=== PATIENT | male | born 1960 | race Caucasian/White ===

== ENCOUNTER 2017-09-10 14:44 | Emergency (ER) | payer OTHER ==
[~2017-09-10] VITALS: Ht 175.3 cm; Wt 83.1 kg
[2017-09-10 14:51] VITALS: Ht 175.3 cm; Wt 83.1 kg
[2017-09-10] MEDS ORDERED: CLONAZEPAM 1 MG TAB PO ONE (17:15)
[2017-09-10] MEDS ORDERED: CLONAZEPAM 0.5 MG TAB PO SCH (17:30)
--- NOTE | 2017-09-10 17:32 | EMERGENCY ROOM VISIT NOTE ---
History Report prepared by Markos: Vamshi Vela Under the Supervision of: Dr. Chandler Mercer D.O. First contact with patient: 16:54 Chief Complaint: MEDICATION REFILL REQUEST Stated Complaint: CONFUSION AND LEG TREMORS,NEEDS MEDS History of Present Illness The patient is a 57 year old male who presents to the Emergency Room with complaints of an episode of a medication refill request occurring today. Per sister, the patient takes Klonopin, Seroquel, and atenolol. She notes that the patient has been traveling around the country recently, and arrived here a month ago. She reports that the patient does not currently have any of his medication, prompting their visit to the emergency room today. The patient complains of pain in his head and neck, numbness in his hand, and hand tremors. He states that it feels like "someone stuck him with a knife." He notes that he has a history of anxiety. Source of History: patient, family (sister) Onset: today Position: other (global) Quality: other (medication refill) Timing: other (an episode) Associated Symptoms: + headache Note: The patient also complains of neck pain, numbness in his hands, and hand tremors. Review of Systems See HPI for pertinent positives & negatives. A total of 10 systems reviewed and were otherwise negative. Past Medical & Surgical Medical Problems: (1) Anxiety Family History No pertinent family history stated. Social History Smoking Status: Never Smoker Marital Status: single Housing Status: lives with family Occupation Status: unemployed Physical Exam Vital Signs Date Time Temp Pulse Resp B/P (MAP) Pulse Ox O2 Delivery O2 Flow Rate FiO2 09/10/17 14:51 36.4 95 17 122/79 97 Room Air Physical Exam CONSTITUTIONAL/VITAL SIGNS: Reviewed / noted above. GENERAL: Non-toxic in appearance. INTEGUMENTARY: Warm, dry, and [place]. HEAD: Normocephalic. EYES: without scleral icterus or trauma. ENT/OROPHARYNX: clear and moist. LYMPHADENOPATHY/NECK: Is supple without lymphadenopathy or meningismus. RESPIRATORY: Lungs clear and equal. CARDIOVASCULAR: Regular rate and rhythm. GI/ABDOMEN: Soft and nontender. No organomegaly or pulsatile mass. No rebound or guarding. Normal bowel sounds. EXTREMITIES: Warm and well perfused. BACK: No CVA tenderness. NEUROLOGICAL: Intact without focal deficits. PSYCHIATRIC: normal affect. MUSCULOSKELETAL: Normally developed with good muscle tone. Medical Decision & Procedures Medications Administered Medications (Trade) Dose Ordered Sig/Wally Route Start Time Stop Time Status Last Admin Dose Admin Clonazepam (Klonopin Tab) 1 mg 1730 PO 09/10/17 17:30 09/10/17 18:00 09/10/17 17:26 1 MG ED Course 1703: Previous medical records were reviewed. The patient was evaluated in room A3. A complete history and physical examination was performed. 1730: Klonopin Tab 1mg PO 1738: On reevaluation, the patient is stable. I discussed the results and findings with the patient. He verbalized agreement of the treatment plan. The patient was discharged home. Medical Decision The patient does not appear to be having any withdrawal symptoms. This is a 57-year-old male who presents to the ED with a chief complaint of needing his Klonopin. The patient typically has been taking this, he reports regularly. He states that he is from [place] but has been in [facility]. He originally reported that he was therefore one half weeks. According to the [employer] [place] program, he has been there for at least a month. He was receiving Klonopin prescriptions there. He received 44 days worth of Klonopin in 1 month. He is traveling back to [place]. He states that he has run out of his medication. The patient was given a dose of Klonopin here. He was felt to be stable for discharge. [place] Drug Monitoring Program Search Results: patient reviewed within database Drug Monitoring Findings: The patient received 44 days worth of 1mg Klonopin tablets in July 2017. Medication Reconcilliation Current Medication List: was personally reviewed by me Blood Pressure Screening Patient's blood pressure: Normal blood pressure Blood pressure disposition: Did not require urgent referral Impression Primary Impression: Medication refill Scribe Attestation The scribe's documentation has been prepared under my direction and personally reviewed by me in its entirety. I confirm that the note above accurately reflects all work, treatment, procedures, and medical decision making performed by me. Departure Information Dispostion Home / Self-Care Forms HOME CARE DOCUMENTATION FORM, IMPORTANT VISIT INFORMATION, WORK / SCHOOL INSTRUCTIONS Patient Instructions My [facility] Additional Instructions Follow-up with your doctor for further care and evaluation in 1-2 days. Return to the emergency department for worsening or new symptoms or any concerns. You have been examined and treated today on an emergency basis only. This is not a substitute for, or an effort to provide, complete comprehensive medical care. It is impossible to recognize and treat all injuries or illnesses in a single emergency department visit. It is therefore important that you follow up closely with your doctor. Call as soon as possible for an appointment.
[2017-09-10 17:48] VITALS: BP 122/79; PULSE 95; TEMP 36.4; O2SAT 97
== END 2017-09-10 17:49 | disposition home or self-care (01) ==
LOC: C.EDB 14:47 → C.EDA 17:49
DX: Z76.0 Encounter for issue of repeat prescription (principal); F41.9 Anxiety disorder, unspecified